=== PATIENT | male | born 1980 | race Caucasian/White ===

== ENCOUNTER 2020-12-31 09:03 | Day surgery (SDC) | payer OTHER ==
[2020-12-31] VITALS (10 sets, daily range): BP systolic 124–159; BP diastolic 75–98; PULSE 55–64; TEMP 98.8
[~2020-12-31] VITALS: Ht 190.5 cm; Wt 131.7 kg
[2020-12-31 10:08] LABS: HEMATOCRIT 43.8 % (42.0-52.0); HEMOGLOBIN 14.7 g/dl (13.5-18.0); MEAN CELL VOLUME 86 fl (80.0-100.0); MEAN CORPUSCULAR HEMOGLOBIN 29 pg (27.0-31.0); MEAN CORPUSCULAR HGB CONC 34 g/dl (33.0-37.0); MEAN PLATELET VOLUME 9.7 fl (7.4-10.4); PLATELET COUNT 196 K/mm3 (130-400); RED BLOOD COUNT 5.07 M/mm3 (4.20-5.60); REDCELL DISTRIBUTION WIDTH-CV 13.5 % (11.5-14.5)
[2020-12-31] MEDS ORDERED: LOFIBRA160 MG PO (10:08)
[2020-12-31] MEDS ORDERED: LIPITOR 80MG80 MG PO (10:08)
[2020-12-31] MEDS ORDERED: EPA FISH OIL1 SGL PO (10:09)
[2020-12-31] MEDS ORDERED: ASPIRIN E.C. 8181 MG PO (10:09)
[2020-12-31 10:15] LABS: PROTHROMBIN TIME 11.4 SECONDS (9.7-12.8)
[2020-12-31 10:17] LABS: PARTIAL THROMBOPLASTIN TIME 33.6 SECONDS (26.0-37.0)
[2020-12-31 10:18] LABS: CALCIUM 9.5 mg/dL (8.4-10.2); CREATININE, serum 0.89 (0.66-1.25); POTASSIUM 4.4 mmol/L (3.4-5.0)
--- NOTE | 2020-12-31 10:47 | NUR ---
Dr. Das notified by Angeles Soni RN of patient's late arrival. Dr. Das ok to proceed to without lab results at this time
--- NOTE | 2020-12-31 14:05 | NUR ---
DC instructions reviewed with pt and . Both express understanding. Pt has been steady on feet in room and walking to restroom. Air has been removed from TR band in 2ml increments without bleeding or complication. Rt radial puncture dressed with 2x2 and bandaid. Pt has tolerated PO without issue. IV DC'd with catheter intact and bleeding controlled at site. He is assisted out to 's car by wheelchair with belongings.
== END 2020-12-31 14:18 | disposition home or self-care (01) ==
LOC: COL.CAR 09:03
PROVIDERS: Internal Medicine Cardiovascular Disease
DX: I25.110 Atherosclerotic heart disease of native coronary artery with unstable angina pectoris (principal); I08.1 Rheumatic disorders of both mitral and tricuspid valves; Z79.82 Long term (current) use of aspirin
CPT/HCPCS: J1200; J1644; J2250; J2930; J3010

== ENCOUNTER 2024-05-15 08:06 | Day surgery (SDC) | payer OTHER ==
[~2024-05-15] VITALS: Ht 190.7 cm; Wt 138.5 kg
[~2024-05-15 08:06] MED LIST: ASPIRIN E.C. 8181 MG PO; LIPITOR 80MG80 MG PO; LOFIBRA160 MG PO; LR 1,000 ML IV SCH; MASON NATURAL1200 MG PO
[2024-05-15] MEDS ORDERED: ELIQUIS 5MG PO (08:25)
[2024-05-15] MEDS ORDERED: ZETIA 10MG TAB10 MG PO (08:26)
[2024-05-15 09:15] VITALS: BP 155/116; PULSE 79; TEMP 98.1
[2024-05-15 09:28] LABS: HEMATOCRIT 46.5 % (42.0-52.0); HEMOGLOBIN 15.5 g/dl (13.5-18.0); MEAN CELL VOLUME 86 fl (80.0-100.0); MEAN CORPUSCULAR HEMOGLOBIN 29 pg (27-31); MEAN CORPUSCULAR HGB CONC 33 g/dl (33.0-37.0); PLATELET COUNT 178 K/mm3 (130-400)
[2024-05-15 09:36] LABS: INR 1.4 (0.8-3.0); PROTHROMBIN TIME 14.9 SECONDS (9.7-12.8)
[2024-05-15 09:38] LABS: PARTIAL THROMBOPLASTIN TIME 38.5 SECONDS (26.0-37.0)
[2024-05-15 09:49] LABS: CALCIUM 9.2 mg/dL (8.4-10.2); CREATININE, serum 0.89 mg/dL (0.72-1.25); MAGNESIUM 1.8 mg/dL (1.6-2.6); POTASSIUM 4.2 mEq/L (3.5-4.5)
[2024-05-15 10:12] LABS: THYROID STIMULATING HORMONE 1.915 uIU/mL (0.350-4.940)
[2024-05-15] MEDS ORDERED: Lidocaine PF 2% (20 MG/ML) 5 ML VIAL ONE (10:17)
[2024-05-15] MEDS ORDERED: Hydrocortisone 1% Cream 30 GM TUBE TP PRN (10:30)
[2024-05-15] MEDS ORDERED: MULTAQ400 MG PO (10:41)
[2024-05-15 10:50] VITALS: BP 136/112; PULSE 71
--- NOTE | 2024-05-15 10:56 | NUR ---
Please see moderate sedation flowsheet and anesthesia flowsheet for record of cardioversion with DR. Das. Genaro did well during procedure, converting to NSR rate 60's after 200j synchronized shock at 1025. Genaro is now awake and alert, Angelina his is at bs. bs report and handoff of care to Herbert WEBBER.
[2024-05-15 11:00] VITALS: BP 136/96; PULSE 74
[2024-05-15 11:15] VITALS: BP 142/103; PULSE 71
[2024-05-15 11:30] VITALS: BP 134/101; PULSE 67
[2024-05-15 11:45] VITALS: BP 147/96; PULSE 66
--- NOTE | 2024-05-15 12:00 | NUR ---
Pt rested comfortably during recovery period. He drank glass of water, denied desire for food. Skin on chest sligtly reddened, but pt refused hydrocortisone cream stating he has tube at home he will use. Dr Das aware of elevated BPs throughout visit today, states no changes today, but will recheck and adress as needed in office at follow up appt. Dr Das also discussed with pt and that if cost of new rx is too much, they will make another plan for medication treatment at follow up. Pt and express understanding. Pt is steady on feet in room. IV DC'd, site wrapped with coban. He is assisted out to 's car by wheelchair with belongings.
== END 2024-05-15 12:00 | disposition home or self-care (01) ==
LOC: COL.CAR 08:06
PROVIDERS: Internal Medicine Cardiovascular Disease
DX: I48.92 Unspecified atrial flutter (principal); E66.9 Obesity, unspecified; G47.33 Obstructive sleep apnea (adult) (pediatric); Z91.199 Patient's noncompliance with other medical treatment and regimen due to unspecified reason; Z79.01 Long term (current) use of anticoagulants
CPT/HCPCS: J2704; J7120

== ENCOUNTER 2024-06-12 09:59 | Day surgery (SDC) | payer OTHER ==
[~2024-06-12] VITALS: Ht 190.7 cm; Wt 137.8 kg
[~2024-06-12 09:59] MED LIST changes: +ELIQUIS 5MG PO; +MULTAQ400 MG PO; +ZETIA 10MG TAB10 MG PO
[2024-06-12] MEDS ORDERED: NS Flush 10 ML SYRINGE PRN ICA (10:15)
[2024-06-12 10:32] VITALS: BP 139/97; PULSE 66; TEMP 98.2
[2024-06-12 10:42] LABS: HEMATOCRIT 46.1 % (42.0-52.0); HEMOGLOBIN 15.7 g/dl (13.5-18.0); MEAN CELL VOLUME 86 fl (80.0-100.0); MEAN CORPUSCULAR HEMOGLOBIN 29 pg (27-31); MEAN CORPUSCULAR HGB CONC 34 g/dl (33.0-37.0); MEAN PLATELET VOLUME 10.2 fl (7.4-10.4); PLATELET COUNT 187 K/mm3 (130-400); RED BLOOD COUNT 5.34 M/mm3 (4.20-5.60); REDCELL DISTRIBUTION WIDTH-CV 12.9 % (11.5-14.5)
[2024-06-12 10:48] LABS: INR 1.2 (0.8-3.0); PROTHROMBIN TIME 13.6 SECONDS (9.7-12.8)
[2024-06-12 10:51] LABS: PARTIAL THROMBOPLASTIN TIME 37.2 SECONDS (26.0-37.0)
[2024-06-12 11:00] LABS: CALCIUM 8.7 mg/dL (8.4-10.2); CREATININE, serum 0.95 mg/dL (0.72-1.25); POTASSIUM 4.3 mEq/L (3.5-4.5)
[2024-06-12 11:22] LABS: THYROID STIMULATING HORMONE 1.753 uIU/mL (0.350-4.940)
[2024-06-12] MEDS ORDERED: Lidocaine PF 2% (20 MG/ML) 5 ML VIAL ONE (11:42)
[2024-06-12 12:07] LABS: MAGNESIUM 1.8 mg/dL (1.6-2.6)
[2024-06-12 12:15] VITALS: BP 127/85; PULSE 67
[2024-06-12] MEDS ORDERED: Hydrocortisone 1% Cream 30 GM TUBE TP PRN (12:15)
[2024-06-12 12:30] VITALS: BP 139/90; PULSE 72
[2024-06-12 13:00] VITALS: BP 154/86; PULSE 70
--- NOTE | 2024-06-12 13:21 | NUR ---
Pt ambulated with a steady gait to EU12, accompanied by . EKG done. IV started. Meds and HX reviewed with the pt. Consent done. Post procedure the pt remained in EU12. The pt was offered something to eat and drink. Accepted a water and granola bar. Pt recovered with us for about an hour. Discharge education and information discussed with the pt. No questions at the time. IV DC'd and the site was wrapped with coban. Pt exited the unit by wheelchair accompanied by this nurse to wifes car.
[2024-06-12] MEDS ORDERED: NS Flush 10 ML SYRINGE BID ICA SCH (21:00)
== END 2024-06-12 13:16 | disposition home or self-care (01) ==
LOC: COL.CAR 09:59
PROVIDERS: Internal Medicine Cardiovascular Disease
DX: I48.0 Paroxysmal atrial fibrillation (principal); R06.83 Snoring; I25.10 Atherosclerotic heart disease of native coronary artery without angina pectoris; E78.2 Mixed hyperlipidemia; E66.9 Obesity, unspecified; Z68.37 Body mass index [BMI] 37.0-37.9, adult; Z79.01 Long term (current) use of anticoagulants; Z79.899 Other long term (current) drug therapy; Z79.82 Long term (current) use of aspirin
CPT/HCPCS: J2704; J7120